=== PATIENT | female | born 1955 | race Caucasian/White ===

== ENCOUNTER 2017-03-21 09:52 | Day surgery (SDC) | payer MEDICAID ==
[~2017-03-21 09:52] MED LIST: Bupivacaine 0.5% 50 ML MDV ONE; Lidocaine 1% with EPINEPHrine 1:100,000 50 ML MDV ONE
[2017-03-21] MEDS ORDERED: Lactated Ringers 1,000 ML IV SCH (10:45)
[2017-03-21] MEDS ORDERED: ceFAZolin 2 GM in Premix Bag 1 BAG IV ONE (11:15)
[2017-03-21] MEDS ORDERED: ceFAZolin 2 GM in Sodium Chloride 0.9% 50 ML IV ONE (11:15)
[2017-03-21] MEDS ORDERED: fentaNYL 100 MCG/2 ML SDV ONE (12:03)
[2017-03-21] MEDS ORDERED: Midazolam 1 MG/ML 2 ML SDV ONE (12:03)
[2017-03-21] MEDS ORDERED: Propofol 200 MG/20 ML SDV ONE (12:03)
[2017-03-21] MEDS ORDERED: Povidone-Iodine 10% Soln 118.25 ML Bottle ONE (12:44)
[2017-03-21 14:05] VITALS: BP 136/74
--- NOTE | 2017-03-22 10:59 | OR ---
DATE OF PROCEDURE: 03/21/2017 PROCEDURE: Port-A-Cath placement, left subclavian vein. COMPLICATIONS: None. HEEL SEAT POUNDER: None. PREOPERATIVE DIAGNOSIS: Esophageal cancer. POSTOPERATIVE DIAGNOSIS: Esophageal cancer. Port placed; however, port is an injectable port (okay to use for CT scan contrast power injection), RISKS: Risks benefits, alternatives, limitations including but not limited to infection, bleeding, and pneumothorax were explained to the patient who wished to proceed. PROCEDURE IN DETAIL: The patient was placed in supine position. The left subclavian vein area was prepped and draped. This was able to be accessed using micropuncture kit on the first pass. This was then exchanged for a 35,000 wire under fluoroscopic guidance using the cortes dilator and the small wire first. Once the wire was in place, the skin was anesthetized and a pocket was created for the port itself. The dilator was introduced under fluoroscopic guidance and the tubing was also introduced. This was placed in the PowerPort which was then sutured into multiple locations. The wound was then closed with 3-0 Vicryl and 4-0 Vicryl interrupted running fashion. Dermabond was used to close the wound after suturing. The films were sent for pneumothorax evaluation. The patient tolerated the procedure well. Bola Beasley MD /[id number]
== END 2017-03-21 15:00 | disposition home or self-care (01) ==
LOC: JP.SDS 09:52
PROVIDERS: ATTEND Surgery
DX: C15.9 Malignant neoplasm of esophagus, unspecified (principal); I10 Essential (primary) hypertension; I25.10 Atherosclerotic heart disease of native coronary artery without angina pectoris; Z95.5 Presence of coronary angioplasty implant and graft; F17.210 Nicotine dependence, cigarettes, uncomplicated; Z88.8 Allergy status to other drugs, medicaments and biological substances
CPT/HCPCS: 36561; J0690; J1642; J2250; J2704; J3010; J7050; J7120; C1788; C1894